=== PATIENT | female | born 1940 | race Caucasian/White ===

== ENCOUNTER → 2016-10-16 | Outpatient (CLI) | payer OTHER | LOC: CIMAGING 08:44 | PROVIDERS: ATTEND Family Medicine | DX: Z12.31 Encounter for screening mammogram for malignant neoplasm of breast (principal); Z80.3 Family history of malignant neoplasm of breast | CPT/HCPCS: G0202 ==

== ENCOUNTER → 2017-02-02 | Outpatient (CLI) | payer OTHER | LOC: FIMAGING 12:17 | PROVIDERS: ATTEND Orthopaedic Surgery | DX: M17.11 Unilateral primary osteoarthritis, right knee (principal); M94.261 Chondromalacia, right knee; M25.461 Effusion, right knee ==

== ENCOUNTER 2017-02-16 05:39 | Inpatient (IN) | payer OTHER ==
[2017-02-16] MEDS ORDERED: ceFAZolin 2 GM/SWFI 2 GM/20 ML SYR IVP ONE (05:53)
[2017-02-16] MEDS ORDERED: DEXAMETHASONE 4 MG/ML VIAL IVP ONE (05:53)
[2017-02-16] MEDS ORDERED: ACETAMINOPHEN 325 MG TAB PO ONE (05:53)
[2017-02-16] MEDS ORDERED: FAMOTIDINE 20 MG TAB PO ONE (05:53)
[2017-02-16] MEDS ORDERED: LIDOCAINE 1% 2 ML INJ ID PRN (05:59)
[2017-02-16] MEDS ORDERED: LR 1,000 ML IV ONE (05:59)
[2017-02-16] MEDS ORDERED: TRANEXAMIC ACID 3,000 MG in NS 50 ML IRR ONE (06:00)
[2017-02-16] MEDS ORDERED: ROPIVACAINE 0.2% 80 MG, EPINEPHrine 0.2 MG, KETOROLAC TROMETHAMINE 30 MG in SYRINGE 0 ML IU ONE (06:00)
[2017-02-16] MEDS ORDERED: VANCOMYCIN 1 GM VIAL ONE (06:36)
[2017-02-16] MEDS ORDERED: TRANEXAMIC ACID 3,000 MG/50 ML BAG IRR ONE (06:36)
[2017-02-16] MEDS ORDERED: PROPOFOL/EMULSION 500 MG/50 ML BOTTLE IV ONE (06:48)
[2017-02-16] MEDS ORDERED: MIDAZOLAM 2 MG/2 ML VIAL ONE ×2 (06:48→06:54)
[2017-02-16] MEDS ORDERED: MIDAZOLAM 2 MG/2 ML VIAL IVP ONE (06:59)
--- NOTE | 2017-02-16 06:59 | PDANEPAE ---
ANE Past Medical History - Cardiovascular History Hx Hypertension: Yes Hx Arrhythmias: No Hx Chest Pain: No Hx Coronary Artery / Peripheral Vascular Disease: No Hx CHF / Valvular Disease: No Hx Palpitations: No Cardiovascular History Comment: on Rx x 5 years. A fib - intermittent on Holter Monitor- heart rate up to 80's only. on Pradaxa. 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 - Congenital Disorder History Hx Congenital Disorders: No - GI History Hx Gastrointestinal Disorders: No - Other Health History Other Health History: osteopenia, R knee OA - Chronic Pain History Chronic Pain: No - Surgical History Prior Surgeries: R knee scope ANE Review of Systems Review of Systems: - Exercise capacity METS (RN): 5 METS ANE Patient History - Allergies Allergies/Adverse Reactions: No Known Allergies Allergy (Verified 12/15/15 15:15) - Home Medications Home Medications: Aspirin [Aspirin 81mg (*)] 81 mg PO DAILY@16 12/08/15 [Last Taken 02/11/17] Atorvastatin Calcium [Lipitor 10 mg (*)] 5 mg PO DAILY@16 12/08/15 [Last Taken 02/15/17] Dabigatran Etexilate Mesyl [Pradaxa 150 MG (*)] 150 mg PO BID 12/08/15 [Last Taken 02/11/17] Acetaminophen [Tylenol 325mg (*)] 325 mg PO DAILY PRN 01/12/17 [Last Taken 2 Months Ago ~12/17/16] Cholecalciferol Vit D3 [Vitamin D3 (*)] 1,000 units PO DAILY 01/12/17 [Last Taken 02/02/17] Herbals/Supplements -Info Only 1 each PO DAILY 01/12/17 [Last Taken 02/02/17] Losartan Potassium [Cozaar 50 mg (*)] 50 mg PO DAILY@16 01/12/17 [Last Taken ] Vitamin B Complex [Super B-50 Complex] 2 each PO DAILY 01/12/17 [Last Taken 03/21] - NPO status NPO Since - Liquids (Date): 02/16/17 NPO Since - Liquids (Time): 05:00 NPO Since - Solids (Date): 02/15/17 NPO Since - Solids (Time): 20:00 - Smoking Hx Smoking Status: Never smoked - Alcohol Use Alcohol Use: Rarely - Family Anes Hx Family Anes Hx: neg - N/A Family Hx Anesthesia Complications: none ANE Labs/Vital Signs - Vital Signs Blood Pressure: 149/89 Heart Rate: 65 Respiratory Rate: 16 O2 Sat (%): 96 Height: 161.29 cm Weight: 48.988 kg ANE Physical Exam - Airway Mallampati Score: Class 2 Mouth exam: normal dental/mouth exam - Pulmonary Pulmonary: no respiratory distress, no rales or rhonchi, clear to auscultation - Cardiovascular Cardiovascular: regular rate and rhythym - ASA Status ASA Status: II
--- NOTE | 2017-02-16 07:07 | PDHPUP ---
History & Physical Update H&P update statement: This history and physical update is based on an assessment of the patient which was completed after admission or registration (within 24 hours), but prior to the surgery/procedure. H&P update: H&P reviewed & patient examined, no change in patient's condition since H&P completed
[2017-02-16] MEDS ORDERED: BISACODYL 10 MG SUPP PR PRN (07:19)
[2017-02-16] MEDS ORDERED: oxyCODONE IR 5 MG TAB PO PRN (07:19)
[2017-02-16] MEDS ORDERED: TEMAZEPAM 15 MG CAP PO PRN (07:19)
[2017-02-16] MEDS ORDERED: ONDANSETRON 4 MG/2 ML VIAL IVP PRN (07:19)
[2017-02-16] MEDS ORDERED: diphenhydrAMINE 25 MG CAP PO PRN (07:19)
[2017-02-16] MEDS ORDERED: METOCLOPRAMIDE 10 MG/2 ML VIAL IVP PRN (07:19)
[2017-02-16] MEDS ORDERED: POLYETHYLENE GLYCOL 3350 17 GM PKT PO PRN (07:19)
[2017-02-16] MEDS ORDERED: CYCLOBENZAPRINE 10 MG TAB PO PRN (07:19)
[2017-02-16] MEDS ORDERED: MAGNESIUM HYDROXIDE 30 ML UDCUP PO PRN (07:19)
[2017-02-16] MEDS ORDERED: ONDANSETRON DISINTEGRATING 4 MG TAB PO PRN (07:19)
[2017-02-16] MEDS ORDERED: DIPHENOXYLATE/ATROPINE LOMOTIL 1 TAB PO PRN (07:19)
[2017-02-16] MEDS ORDERED: PROMETHAZINE HCL 25 MG/ML INJ IVP PRN (07:19)
[2017-02-16] MEDS ORDERED: LACTULOSE 20 GM/30 ML UDCUP PO PRN (07:19)
[2017-02-16] MEDS ORDERED: PROMETHAZINE HCL 25 MG SUPPR PR PRN (07:19)
[2017-02-16] MEDS ORDERED: LR 1,000 ML IV SCH (07:30)
[2017-02-16] MEDS ORDERED: NALOXONE HCL 0.4 MG/ML INJ IVP PRN (07:55)
--- NOTE | 2017-02-16 07:55 | POSTANESTH ---
Post Anesthetic Evaluation Respiratory Status: Normal, Stable Level of Consciousness/Mental Status: Mildly Sleepy, Arousable Pain Control: Adequate, Prn Tx Ordered Nausea/Vomiting Control: Adequate, Prn Tx Ordered Complications Possibly Related to Anesthesia: None Noted (Pt to receive Adductor Canal block with US guidance in PACU)
--- NOTE | 2017-02-16 08:35 | POSTOPPROG ---
Post Op Note Date of Operation: 02/16/17 Surgeon: Travis Hay Color Buffer: alyssa hay Anesthesiologist: dr. carmichael Anesthesia: Spinal, Other (Specify) (adductor canal block) Pre-op Diagnosis: Right knee OA Post-op Diagnosis: same Indication: right knee pain due to OA that failed conservative measures Procedure: R TKA robot assist Findings: severe knee OA and osteophytes Inf/Abcess present in the surg proc area at time of surgery?: No EBL: 50-100
[2017-02-16] MEDS: ACETAMINOPHEN 325 MG TAB PO SCH ×3 (11:56→23:46)
[2017-02-16] MEDS: SENNOSIDES/DOCUSATE SODIUM TAB PO SCH ×2 (11:57→20:00)
[2017-02-16] MEDS ORDERED: ceFAZolin 2 GM/DEXTROSE 100 ML IV SCH (14:00)
[2017-02-16] MEDS: ceFAZolin 2 GM/SWFI 2 GM/20 ML SYR IVP SCH ×2 (15:22→22:04)
[2017-02-16] MEDS ORDERED: LOSARTAN POTASSIUM 50 MG TAB PO SCH (16:00)
[2017-02-16] MEDS ORDERED: ATORVASTATIN CALCIUM 10 MG TAB PO SCH (16:00)
[2017-02-16] MEDS: FAMOTIDINE 20 MG TAB PO SCH (20:00)
[2017-02-17 05:04] LABS: HEMATOCRIT 30.4 % (38.0-47.0); HEMOGLOBIN 10.1 g/dL (12.6-16.3)
[2017-02-17] MEDS: ACETAMINOPHEN 325 MG TAB PO SCH (05:04)
[2017-02-17 05:15] LABS: ANION GAP 10 mEq/L (8-16); CALCIUM 8.8 mg/dL (8.5-10.4); CARBON DIOXIDE 27 mEq/l (22-31); CHLORIDE 108 mEq/L (97-110); CREATININE 0.7 mg/dL (0.6-1.0); GLOMERULAR FILTRATION RATE > 60; GLUCOSE 98 mg/dL (70-100); POTASSIUM 4.3 mEq/L (3.5-5.2); SODIUM 145 mEq/L (134-144)
[2017-02-17 07:18] VITALS: BP 134/66; PULSE 60; RESP 14; TEMP 97.9; O2SAT 96
[2017-02-17] MEDS ORDERED: DABIGATRAN ETEXILATE MESYL 150 MG CAP PO SCH (09:00)
--- NOTE | 2017-02-17 09:11 | SOAPPROG ---
DONG Progress Note Assessment/Plan: Assessment: Yesica is doing well today s/p R TKA 1) pain is well controlled on oral pain meds 2) VTE ppx: recommend aspirin 81 mg BID for 4 weeks 3) d/c planning: d/c to home pending release from PT 4) anemia: level expected initially postop Plan: 02/17/17 09:10 Subjective: Yesica is doing well today, denies SOB, chest pain and N/V. Objective: Vital Signs Temp Pulse Resp BP Pulse Ox 36.6 C 60 14 134/66 H 96 02/17/17 07:17 02/17/17 07:17 02/17/17 07:17 02/17/17 07:17 02/17/17 07:17 Laboratory Results 02/17/17 04:38 02/17/17 04:38 02/16/17 02/17/17 02/18/17 05:59 05:59 05:59 Intake Total 1450 Output Total 1620 Balance -170 RLE: incision dressing is clean and dry, NVI, +pf/df ICD10 Worksheet Patient Problems: Problems Problem Status Onset Primary localized osteoarthritis of right knee Acute Primary localized osteoarthritis of left knee Acute
[2017-02-17] MEDS: FAMOTIDINE 20 MG TAB PO SCH (09:17)
[2017-02-17] MEDS: SENNOSIDES/DOCUSATE SODIUM TAB PO SCH (09:18)
--- NOTE | 2017-02-17 10:14 | ASDISCHSUM ---
Discharge Information Plan Status:Home with No Needs Medically Cleared to Leave:02/16/2017 Discharge Date:02/16/2017 CM D/C Disposition:Home, Routine, Self-Care ADT D/C Disposition:Home, Routine, Self-Care Projected Discharge Date:02/16/2017 Transportation at D/C:Family Discharge Delay Reason: Follow-Up Date:02/16/2017 Discharge Slot: Final Diagnosis: Placement Information Patient Contact Information Contact Name:OLMAN Relationship:Daughter Address:[address] [place] City:[place] Alternate Phone: [facility]/Zip Code:[place] [address] Email: Financial Information Financial Class:Medicare Advantage Plans Primary Plan Desc:[facility] ADV[employer]AGE PLANS Primary Plan Number:[id number] Secondary Plan Desc: Secondary Plan Number: Assessment Information Case Management Discharge Plan Note Case Management Discharge Discharge Order Complete? Answers: Yes Patient to Obtain Answers: via Family Medications Transportation Arranged Answers: Family/Friends Discharge Comments Notes: Pt s/p R TKA. PT/OT cleared. Pt is discharging home today with no CM needs. Her daughter will stay with her for assistance. Date Signed: 02/17/2017 10:13 AM Electronically Signed By:TU Ronquillo Intervention Information
--- NOTE | 2017-02-20 14:10 | GOP ---
[f rep st] OPERATIVE REPORT DATE OF OPERATION: 02/16/2017 SURGEON: Chandrika Prasad MD [employer] OFFICER: GABRIELA Betancur PREOPERATIVE DIAGNOSIS: Right knee osteoarthritis. POSTOPERATIVE DIAGNOSIS: Right knee osteoarthritis. PROCEDURE PERFORMED: Right total knee arthroplasty with computer navigation and robotic assist. ANESTHESIA: Spinal. FINDINGS/PATHOLOGY: Severe lateral and patellofemoral osteoarthritis. ESTIMATED BLOOD LOSS: 30 cc. INDICATIONS: This is a 76-year-old female with severe and progressive pain and deformity of the right knee unresponsive to conservative care. Risks and benefits of the surgical intervention were explained in detail. DESCRIPTION OF PROCEDURE: The patient was brought to the operative room and placed on the table in the supine position. Spinal anesthesia was induced without difficulty. A pneumatic tourniquet was applied about the rightt proximal thigh, and the leg was prepped and draped in a sterile fashion. The leg vaughan was applied. After exsanguination by elevation the tourniquet was inflated to 275 mm of mercury. Incision was made anterior medial from the tibial tuberosity to a point 2 cm proximal to the superior pole of the patella. Medial parapatellar arthrotomy was carried out from the superior pole of the patella and posteriorly in line with the fibers of the Type II VMO. The medial collateral ligament was elevated and the infrapatellar fat pad was resected. The patella was everted and the articular surface was excised. A 32 mm patellar button was placed. Attention was turned first to the distal aspect of the right femur. At 3 cm proximal to the medial rise of the femur, 2 percutaneous half pins were placed for fixation of the femoral array. In a similar fashion, 2 pins were placed anteromedial on the tibia for fixation of the tibial array. External land marking and registration of the hip center was performed without difficulty. Internal femoral and tibial registration was carried out without difficulty and the femoral and tibial checkpoints were placed and verified for accuracy. Attention was turned to the femur. The foot print for the size 4 femoral component was cut with the saw using the [employer] robotic system and verified for accuracy against the CT based plan. In a similar fashion, saw was used to cut the footprint for the size 4 tibial component using the [employer] system and verified for accuracy against the CT based plan. The tibial articular surface was excised without difficulty, followed by the intercondylar box cut. The knee was extended and the remnants of the medial and lateral meniscus were excised. The posterior capsule was injected with ropivacaine, epinephrine and Toradol. A size 4 MIS mini-keel tibial tray was positioned. Trial reduction was then carried out. There was excellent range of motion, alignment, and stability using the 9 mm polyethylene. All trials were then removed. The joint was thoroughly irrigated and carefully dried. Two packages of cement and 2 grams of vancomycin were mixed in the vacuum mixer and placed on the fixation surfaces of all surfaces of the components. The components were implanted and all excess cement was thoroughly removed. The permanent 9 mm polyethylene was placed without difficulty. The tourniquet was deflated and all bleeders were coagulated. The wound was thoroughly irrigated and closed using interrupted sutures of 2-0 Vicryl for the joint capsule. The subcu was closed with 3-0 Vicryl and the skin with 4-0 Monocryl. Dermabond and Steri-Strips were applied followed by a compressive dressing. The patient was then moved from the operating room to the recovery room in good condition, having tolerated the procedure well. /[id number]/MODL MTDD
== END 2017-02-17 10:54 | disposition home or self-care (01) | DRG 470 ==
LOC: F3N 05:39 → EEVIPCON 09:15 → F3N 09:48
PROVIDERS: ADMIT Orthopaedic Surgery; ATTEND Orthopaedic Surgery
PROC: 0SRC0J9 Replacement of Right Knee Joint with Synthetic Substitute, Cemented, Open Approach (ICD-10-PCS; principal; 2017-02-16 07:15)
PROC: 8E0Y0CZ Robotic Assisted Procedure of Lower Extremity, Open Approach (ICD-10-PCS; principal; 2017-02-16 07:15)
DX: M17.11 Unilateral primary osteoarthritis, right knee (principal)
CPT/HCPCS: 97116-GP; 97161-GP; 97165-GO; C1713; G8978-GP-CI; G8979-GP-CH; G8979-GP-CI; G8980-GP-CI; J0171; J0690; J1100; J1885; J2250; J2704; J2795; J3370

== ENCOUNTER → 2017-10-22 | Outpatient (CLI) | payer OTHER | LOC: CIMAGING 07:39 | PROVIDERS: ATTEND Family Medicine | DX: Z12.31 Encounter for screening mammogram for malignant neoplasm of breast (principal); Z80.3 Family history of malignant neoplasm of breast ==